=== PATIENT | male | born 1975 | race Caucasian/White ===

== ENCOUNTER 2017-11-10 08:49 | Observation (INO) ==
[2017-11-10] MEDS ORDERED: Heparin 10,000 UNITS/10 ML Vial (for IV use) IV.PUSH STA (08:53)
[2017-11-10] MEDS ORDERED: Sod Chloride 0.9% Inj 1,000 ML IV.SIG SCH (09:00)
[2017-11-10] MEDS ORDERED: Heparin/NS PF Inj 1,000 ML ONE (09:06)
[2017-11-10] MEDS ORDERED: Heparin 10,000 UNITS/10 ML Vial (for IV use) ONE (09:07)
[2017-11-10] MEDS ORDERED: Lidocaine PF 1% Inj 30 ML Vial ONE (09:11)
[2017-11-10] MEDS ORDERED: fentaNYL Citrate Inj 100 MCG/2 ML Ampul ONE (09:16)
--- NOTE | 2017-11-10 09:17 | XR ---
EXAM DATE: 11/10/2017 9:11 AM EDT AGE/SEX: 42 years / Male INDICATIONS: STEMI alert, chest pain this morning CLINICAL DATA: This is the patient's initial encounter. Patient reports that signs and symptoms have been present for 1 day and indicates a pain score of 8/10. MEDICAL/SURGICAL HISTORY: Emphysema. . COMPARISON: [facility], CHEST SINGLE AP, 03/07/2016. . FINDINGS: A single AP view of the chest demonstrates the lungs to be symmetrically aerated without evidence of mass, infiltrate or effusion. The cardiomediastinal contours are unremarkable. Osseous structures a re intact. CONCLUSION: Negative examination. Electronically signed by: Viktor Rdz MD 11/10/2017 9:15 AM EDT
[2017-11-10 09:20] LABS: Activated Partial Thrombo Time 26.2 sec (24.3-30.1); Prothrombin Time 9.9 sec (9.8-11.6)
--- NOTE | 2017-11-10 09:23 | ED ---
HPI General Chief Complaint: STEMI Alert Stated Complaint: Stemi Alert Time Seen by Provider: 11/10/17 08:53 Source: patient Mode of arrival: EMS Limitations: no limitations History of Present Illness HPI narrative: 42-year-old male with a history of tobacco use, presents today after being called a STEMI alert. The patient was outside smoking a cigarette when he started experience in tightness in his left chest with radiation to his left jaw. The patient denies any history of cardiac problems. He does have family history with his father having cardiac issues. Besides smoking cigarettes, the patient has no history of hypertension diabetes or known cholesterol issues. MD complaint: chest pain Complete Quality Measures for STEMI Alert Patients STEMI Alert: Yes Onset (ago): minute(s) Time: 08:20 Duration: improved Onset: during rest Pain location: left chest and other (Left jaw) Severity: moderate Severity scale (1-10): 5 Quality: tightness and heaviness Pain radiation: jaw/teeth Relieving factors: nitroglycerin Exacerbating factors: nothing Context: other Associated symptoms: nausea Treatments prior to arrival chest pain: aspirin and nitroglycerin Related Data Allergies Allergy/AdvReac Type Severity Reaction Status Date / Time No Known Allergies Allergy Unverified 11/10/17 08:51 Review of Systems Except as stated in HPI: all other systems reviewed are negative Constitutional Denies chills and Denies headache(s) Eyes Reports system reviewed and no additional complaints, except as [facility] Denies headache(s) and Reports other (Left jaw discomfort) Cardiovascular Reports chest pain, Reports chest pain at rest and Denies palpitations Respiratory Denies chest congestion and Denies cough Gastrointestinal Reports system reviewed and no additional complaints, except as [facility] Genitourinary Reports system reviewed and no additional complaints, except as [facility] Musculoskeletal Reports system reviewed and no additional complaints, except as [facility] Neurologic Reports system reviewed and no additional complaints, except as [facility] PMFSH Social History Social History Substance History: No History of Abuse Smoking Status: Current every day smoker Tobacco Type: Cigarettes How Often Do You Have a Drink Containing Alcohol: Monthly or less Recent Travel in [facility] within the Last 8 Weeks: No Recent Out of Country Travel within the Last 8 Weeks: No Immunization History Tetanus Immunization: Unsure Hx Influenza Vaccine This Season: No Exam Narrative Exam Narrative: GENERAL: Well developed well-nourished male in no acute respiratory distress. SKIN: Focused skin assessment warm/dry. HEAD: Atraumatic. Normocephalic. EYES: Pupils equal and round. No scleral icterus. No injection or drainage. ENT: No nasal bleeding or discharge. Mucous membranes pink and moist. NECK: Trachea midline. Supple. CARDIOVASCULAR: Regular rate and rhythm. No murmur appreciated. RESPIRATORY: No accessory muscle use. Clear to auscultation. Breath sounds equal bilaterally. GASTROINTESTINAL: Abdomen soft, non-tender, nondistended. Hepatic and splenic margins not palpable. MUSCULOSKELETAL: No obvious deformities. No clubbing. No cyanosis. No edema. NEUROLOGICAL: Awake and alert. No obvious cranial nerve deficits. Motor grossly within normal limits. Normal speech. PSYCHIATRIC: Appropriate mood and affect; insight and judgment normal. Course Initial Documented Vital Signs Temperature 98.0 F 11/10/17 08:51 Pulse Rate 75 11/10/17 08:51 Respiratory Rate 18 11/10/17 08:51 Blood Pressure 124/82 11/10/17 08:51 Pulse Oximetry 97 11/10/17 08:51 Last Documented Vital Signs Temperature 98.0 F 11/10/17 08:51 Pulse Rate 83 11/10/17 08:57 Respiratory Rate 18 11/10/17 08:51 Blood Pressure 124/82 11/10/17 08:57 Pulse Oximetry 99 11/10/17 09:08 Medical Decision Making MDM Narrative Medical decision making narrative: 42-year-old male presents as a STEMI alert. Patient has anterior septal ST elevation with reciprocal depression on 12-lead from the MS. Patient's repeat 12-lead here showed normalization. Patient was taken emergently to the [facility]. Case was discussed with Dr. Abdirashid Siegel , on-call exchange engineer. He had been given aspirin in the field. He also been given 3 sublingual nitro which brought his pain nearly 2 is 0. He was loaded with 4500 mg of heparin. Differential Diagnosis Differential Diagnosis: ACS versus musculoskeletal versus metabolic derangement. Discharge Plan Discharge Disposition Patient Disposition: 30 Still Patient Discharge Details Diagnosis: ST elevation myocardial infarction (STEMI), Tobacco use Physicians Team ED Provider: Donato Giraldo Primary Care Provider: Primary Care Physici,No Discharge Interventions Interventions: ED Discharge Assessment Last Done: 11/10/17 09:17 Vital Signs Last Done: 11/10/17 09:04 Status ED Status: With Doctor
[2017-11-10 09:31] LABS: Magnesium 2.1 mg/dL (1.5-2.5)
[2017-11-10 09:33] LABS: Troponin I 0.02 ng/mL (0.02-0.05)
[2017-11-10] MEDS ORDERED: Iohexol 350 MG/ML 100 ML Vial (for Cath Lab) IVCONTRAST ONE (10:04)
--- NOTE | 2017-11-10 10:07 | CATHPROC ---
[facility] HIS Report Study Information Study Number Admission Scheduled Start Study Start [id number] Nov 10 2017 8:49AM 11/10/2017 Nov 10 2017 9:10AM [facility] Service Cardiac Pacer/ICD Admit Source Facility Department Emergency department [facility] - Department Administrator Physician and Clinical Staff Initial Abdirashid Casas Shoemaker Custom Ervin Cary,KENNETH Shoemaker Custom Drew Nuñez RN Other Hosterman, Neil,RT(R) Recorder Cindy Cook,OPERATIONAL INTELLIGENCE OFFICER TECH2 Scrub Lori Boyd,TONY TECH2 Procedures Performed Procedure Location (Site) Vessel Name Coronary Angiograms LCA Left Coronary Coronary Angiograms RCA Right Coronary L Heart Cath Equipment Time Hospital Medicine Director Description Size Mfg Part Number Used/Scraped TRANSDUCER, TRUWAVE [id number] 09:11 RODRIGUEZ MOHAMUD * Used W/STOCKCOCK *[id number] *[id number] *[id number] 09:11 [employer] BLANKET,WARM AIR CCL * Used *[id number] 09:11 [employer] PACK, CCL CUSTOM * Used *[id number] 09:11 [employer] SUPPORT, ARTERIAL ADULT [id number] *[id number] Used BAND, RADIAL COMPRESSION TR [id number] 09:47 [employer] 24CM Used SHORT 24 *[id number] 09:11 [employer] WIRE, EXCHANGE 260CM 3MMJ 260CM Used *[id number] 09:11 [employer], 4 PORT * Used *[id number] 09:11 [employer] OMNIPAQUE, 350 MG, 150ML 150ML [id number] Used SHEATH, FR6 TRANSRADIAL RM*[id number] 09:11 [employer] MEDICAL FR 6 Used SLENDER 10CM *[id number] History: Allergies Allergy Reaction No Known Allergies History: Risk Factors Family History of Hypertension Dyslipidemia Previous OH Previous Heart Failure Premature CAD No No Yes No No Prior Valve Prior PCI Prior CABG Surgery No No No Cerebrovascular Peripheral Artery Chronic Lung On Dialysis Diabetes Disease Disease Disease No No No No No History: Symptoms/Diagnosis Selection Items Chest pain History: Stress Tests Stress or Imaging Studies Performed No History: Other Current Smoker Method Packs a Day Years Used Pack Years Yes Cigarettes 1 27 27 Labs Hgb (g/dl) Hct (%) 11.60-17.00 35.00-51.00 16.0 47 Glucose (mg/dl) BUN (mg/dl) Creatinine (mg/dl) BUN:Creatinine (1:x) 74.00-106.00 7.00-18.00 0.50-1.30 10.00-20.00 103 15 0.9 16.7 Na (meq/l) K (meq/l) Cl (meq/l) Ca (mg/dl) 136.00-145.00 3.50-5.10 98.00-107.00 8.50-10.10 142 3.7 103 9 PT (sec) PTT (sec) INR (PTT:PT) 9.80-11.60 24.30-30.10 0.90-1.10 9.9 26.2 1 Troponin I (ng/ml) CPK (u/l) CPK-MB (ng/ML) 0.02-0.05 26.00-308.00 0.50-3.60 0.02 51 Not Drawn Medication Medication Total Dose (Bolus/Oral) Medication Total Dosage/Unit 1% XYLOCAINE 5 mL FENTANYL 25 mcg RADIAL COCKTAIL 5 mL (Bolus) VERSED 0.5 mg Medications (Bolus/Oral) Medication Time Given Dosage/Unit Administered By Reason VERSED 11/10/2017 9:29:52 AM 0.5 mg Luis Daniel Ervin 0.5 mg VERSED given in lab by Ervin Cary RN in Right Antecubital via Peripheral IV. Ordered by Abdirashid Guerrero FENTANYL 11/10/2017 9:30:09 AM 25 mcg Luis Daniel, Ervin 25 mcg FENTANYL given in lab by Ervin Cary RN in Right Antecubital via Peripheral IV. Ordered by Abdirashid San 1% XYLOCAINE 11/10/2017 9:30:32 AM 5 mL Abdirashid Siegel 5 mL 1% XYLOCAINE given in lab by Abdirashid Siegel in Right Radial via Subcutaneous. Ordered by Abdirashid Armando Ntg 200mcg Verapamil 2.5mg Heparin RADIAL COCKTAIL 11/10/2017 9:32:09 AM 5 mL (Bolus) Abdirashid Siegel 3000U 5 mL (Bolus) RADIAL COCKTAIL given in lab by Abdirashid Siegel in Right Radial via Radial. Using [S olution Name]. Ordered by Abdirashid Siegel Reason: Ntg 200mcg Verapamil 2.5mg Heparin 3000U. Medication (Drip) Medication Time Given Dosage/Unit Concentration/Unit Diluent (ml) Solution IV Solutions 11/10/2017 9:14:46 AM 0 mL (IV) 1000 NaCl .9 Patient arrived on IV Solutions in Left Antecubital via Peripheral IV. Pump/Drip Flow = 20 ml/hr usin g NaCl .9. Initial Case Assessment Cardiovascular HR Rhythm NIBP Chest Pain 74 sr 124/94 0 Circulatory - Right Pulses Dorsalis Pedis Femoral Radial 3 3 2 Scale (0,1,2,3,4,d) Circulatory - Left Pulses Dorsalis Pedis Femoral Radial 3 3 Scale (0,1,2,3,4,d) Neurological State Oriented to time-place- Alert Moves all extremities person Respiration - General Respiration Rate SpO2 (%) (B/min) 16 100 Final Case Assessment Cardiovascular HR Rhythm NIBP Chest Pain 64 sr 122/66 0 Circulatory - Right Pulses Dorsalis Pedis Femoral Radial 3 3 2 Scale (0,1,2,3,4,d) Circulatory - Left Pulses Dorsalis Pedis Femoral Radial 3 3 Scale (0,1,2,3,4,d) Neurological State Oriented to time-place- Alert Moves all extremities person Respiration - General Respiration Rate SpO2 (%) (B/min) 17 98 Chronological Log Time Study Chronological Log 9:07:13 Patient Name, D.O.B, / Armband Verified By R.N. 9:07:30 Patient arrived directly from ER. 9:11:19 Pre-op and post- op instructions given; patient acknowledges understanding of instructions. 9:11:20 Verbal Stimulation=2 Physical Stimulation=2 Airway=2 Respiration=2 TOTAL=8. (0=absent, 1=martinez ited, 2=present) 9:11:54 Presedation assessment performed by Department Administrator RN. Vitals capture started with the following parameters, Patient=Adult, Interval=5 min, Initial Pre vkbwu=720 mmHg, 9:13:43 Deflation Rate=5 mmHg, Cuff placed on Left Arm 9:14:12 Positive Allens test performed on the right radial and ulnar artery. 9:14:19 HR=83 bpm, QAHI=855/94 mmhg, SpO2=98.0 %, Resp=15 B/min 9:14:23 Patient has been NPO for More than 6Hrs. 9:14:25 Skin Breakdown-none 9:14:31 Disposable Defibrillator Pads Placed On Patient. 9:14:43 Carmella Prominences Protected 9:14:45 A # 18 IV was noted in the Antecubital (left). Grade = 0 9:14:46 Patient arrived on IV Solutions in Left Antecubital via Peripheral IV. Pump/Drip Flow = 20 m l/hr using NaCl .9. 9:14:47 History and physical on the chart or being dictated. Assessment: Initial Case, HR=74 BPM, Rhythm=sr, VBAB=220/94 mmhg, Chest Pain=0 Right Pulses: Frank Ped=3, Femoral=3, Radial=2 9:14:48 Left Pulses: Frank Ped=3, Femoral=3 Neurological: State=Alert, Ox3, MURRIETA Respiration: Resp=16 B/min, PoR8=711 % 9:15:16 MD arrived. 9:15:23 Right radial and Bilateral groins prepped with 2% chlorhexidine, and draped after a 3 minute waiting time. 9:16:10 A # 20 IV was noted in the Antecubital (right). Grade = 0 9:16:51 HR=80 bpm, IUJR=837/88 mmhg, SpO2=98.0 %, Resp=16 B/min 9:17:36 Reference ECG taken 9:18:17 HR=82 bpm, WVTG=476/97 mmhg, SpO2=98.0 %, Resp=19 B/min 9:20:18 HR=64 bpm, XDFC=608/86 mmhg, SpO2=98.0 %, Resp=17 B/min 9:22:50 Pressure channel 1 zeroed. 9:22:57 HR=64 bpm, HHIM=108/84 mmhg, SpO2=98.0 %, Resp=17 B/min 9:24:21 HR=64 bpm, ZUAD=418/80 mmhg, SpO2=98.0 % 9:26:16 HR=64 bpm, LLLV=777/78 mmhg, SpO2=99.0 % 9:28:19 HR=57 bpm, SIFZ=853/77 mmhg, SpO2=99.0 % Time Out. Correct patient, correct procedure, correct physician, labs, allergies, and equipment verified with metallurgical lab technician 9:29:12 team present. Fire risk assesment completed (see hard stop sheet for coding). Time Out Concu rred by MD and individual staff in procedure. 9:29:52 0.5 mg VERSED given in lab by Ervin Cary RN in Right Antecubital via Peripheral IV. Order ed by Abdirashid Siegel. 25 mcg FENTANYL given in lab by Ervin Cary RN in Right Antecubital via Peripheral IV. Ordered by Abdirashid Siegel 9:30:09 G. 9:30:20 HR=77 bpm, CMWF=810/83 mmhg, SpO2=98.0 %, Resp=19 B/min 9:30:27 Case Start 5 mL 1% XYLOCAINE given in lab by Abdirashid Siegel in Right Radial via Subcutaneous. Ordered by Robbin 9:30:32 Abdirashid Nieves 9:30:57 Access site was Radial Artery. Right A SHEATH, FR6 TRANSRADIAL SLENDER 10CM FR 6 was advanced into the Radial (right) using the Perc utaneous 9:31:12 technique. 5 mL (Bolus) RADIAL COCKTAIL given in lab by Abdirashid Siegel in Right Radial via Radial. Us ing [Solution Name]. 9:32:09 Ordered by Abdirashid Siegel. Reason: Ntg 200mcg Verapamil 2.5mg Heparin 3000U. 9:32:17 HR=76 bpm, WRSW=883/90 mmhg, SpO2=98 %, Resp=12 B/min A JR 4.0 INFINITI CATHETER FR 5 was advanced over a wire. OMNIPAQUE, 350 MG, 150ML 150ML was us ed for 9:32:41 injections. 9:34:24 HR=63 bpm, BXQM=359/65 mmhg, SpO2=98.0 %, Resp=10 B/min Recorded Pressure: LV, HR=64, Condition=Condition 1 9:34:51 (Left Ventricle) LV 118/0/11 Recorded Pressure: LV, Ao, HR=72, Condition=Condition 1 9:35:33 (Left Ventricle) LV 114/5/7, (Aorta) Ao 110/74/91 9:36:11 The RCA was injected and visualized at various angles. OMNIPAQUE, 350 MG, 150ML 150ML used. 9:36:22 HR=62 bpm, MSQN=678/62 mmhg, SpO2=94.0 %, Resp=13 B/min After removing the current catheter a JL 3.5 INFINITI CATHETER FR 5 was advanced over a WIRE, E XCHANGE 260CM 9:37:50 3MMJ 260CM. 9:38:19 HR=74 bpm, ZXUH=510/71 mmhg, SpO2=94.0 %, Resp=13 B/min 9:40:22 HR=64 bpm, XNVG=984/65 mmhg, SpO2=94.0 %, Resp=12 B/min 9:41:12 The LCA was injected and visualized at various angles. OMNIPAQUE, 350 MG, 150ML 150ML used. 9:43:02 HR=62 bpm, XTHA=637/69 mmhg, SpO2=97.0 % 9:45:48 HR=71 bpm, UPST=715/91 mmhg, SpO2=96.0 %, Resp=14 B/min 9:46:29 Catheter was removed 9:47:44 HR=65 bpm, EWQS=517/73 mmhg, SpO2=97.0 %, Resp=10 B/min 9:48:46 HR=63 bpm, HLGG=535/75 mmhg, SpO2=97.0 %, Resp=12 B/min 9:49:11 Case End (Physician broke scrub) Radial Compression Device Used. 13 mLs of air placed in BAND, RADIAL COMPRESSION TR SHORT 24 24 CM. Affected 9:50:08 hand 97 % O2 saturation. 9:50:24 HR=64 bpm, BBWK=339/66 mmhg, SpO2=98.0 %, Resp=17 B/min 9:52:45 Vitals capture stopped. Assessment: Final Case, HR=64 BPM, Rhythm=sr, WOEC=974/66 mmhg, Chest Pain=0 Right Pulses: Frank Ped=3, Femoral=3, Radial=2 9:55:41 Left Pulses: Frank Ped=3, Femoral=3 Neurological: State=Alert, Ox3, MURRIETA Respiration: Resp=17 B/min, SpO2=98 % 9:56:48 No case complications noted. 9:56:50 Cine recording checked. 9:56:51 Bedside Report will be given. 9:56:58 A Left Heart Cath was performed. 10:03:59 [facility] moved to bed [facility] End Study - Contrast Media Used In Study Contrast Total Opened (mL) Total Used (mL) Total Wasted (mL) Omnipaque 60 60 0 End Study - Maximum Contrast Load Max Contrast Load (mL) 415.7 End Study - Radiation Exposure Fluoro Time Fluoro Dose (mGy) Cine Dose (uGym2) (minutes) 2.0 545 2888 End Study - Sheaths Sheaths Pulled By Sheath Hold Time (min) Lori Boyd End Study - Patient Disposition Complications Transferred To Interventional Outcome No Critical Care Bed No attempt made
--- NOTE | 2017-11-10 22:19 | MB ---
cc: Abdirashid Siegel DO DATE: 11/10/2017 CHIEF COMPLAINT: Chest pain. HISTORY OF PRESENT ILLNESS: Gonzalez Kaur is a pleasant 42-year-old male who presented to [facility] due to chest pain. He states that he started getting tightness in his left upper chest and has had this on and off for a number of years. He noticed it a little more significantly over the past month. He felt like he needed to have this checked out further and so he called the ambulance. EKG by EMS showed possible ST elevation in the anterior and high lateral leads with reciprocal changes. He was called as a STEMI-alert at that time. Upon arrival, EKG was repeated and showed normal sinus rhythm, with no acute ST-T wave changes. I was asked to evaluate him due to the EKG changes noted on EMS' EKG. By the time I saw him, his chest pain had mostly gone away and he felt relatively better. PAST MEDICAL HISTORY: 1. Necrotizing pneumonia with cavitation (02/2016). 2. Tobacco abuse. 3. Anxiety/depression. 4. Chronic pain. PAST SURGICAL HISTORY: Bronchoscopy (10/28/2015). ALLERGIES: NO KNOWN DRUG ALLERGIES. MEDICATIONS: Denies. FAMILY HISTORY: Father had a myocardial infarction in his 40s. He also had bypass valve replacement and a brain tumor. Mother had ovarian cancer and has . SOCIAL HISTORY: He smokes about a pack of cigarettes a day. Denies alcohol or IV drug abuse. He does take painkillers occasionally and has attempted to wean himself off. He states that he takes 1 every 4-8 weeks as needed. REVIEW OF SYSTEMS: Fourteen systems were reviewed including osteopathic. Pertinent positives and negatives above, otherwise negative. PHYSICAL EXAMINATION: VITAL SIGNS: Temperature 98.0, heart rate 75, blood pressure 124/82, respirations 18, pulse oximetry 97% on 2 liters. GENERAL: The patient appears well, in no acute distress, alert, awake and oriented x 3. HEENT: Extraocular muscles intact. Mucous membranes moist. NECK: Supple. No JVD at 45 degrees. No carotid bruits heard bilaterally. Carotid upstroke is brisk in nature. HEART: Regular rate and rhythm. Positive first and second heart sounds, with no noted murmurs, gallops or rubs. LUNGS: Clear to auscultation bilaterally. No wheezes, rales or rhonchi. ABDOMEN: Soft, nontender, nondistended. No organomegaly noted. EXTREMITIES: Show no clubbing, cyanosis or edema. Femoral and distal pulses are intact bilaterally. NEUROLOGIC: No focal deficits. OSTEOPATHIC: No kyphoscoliosis, lordosis. LABORATORY DATA: Hemoglobin 16.0, hematocrit 47.0. Potassium 3.7, BUN 15, creatinine 0.9. Troponin 0.02. Electrocardiogram (11/10/2017 at 0853), sinus rhythm, occasional PVC. IMPRESSION: 1. Abnormal echocardiogram on arrival of emergency medical services. 2. Chest pain concerning for coronary insufficiency. 3. Chronic pain. 4. Tobacco abuse. 5. History of premature coronary artery disease with his father having a myocardial infarction in his 40s. RECOMMENDATIONS: 1. Mr. Kaur presented with chest pain, which has some components of typical and atypical angina. Overall, there is concern that his EKG in the ambulance did show some ST elevations, although ours reverted back to normal. 2. To rule out significant disease, whether that would be a recannulated coronary artery or an occluded artery with collaterals, cardiac catheterization should be done to define his coronary anatomy. 3. Risks, benefits and alternatives have been explained to him and he consents to such. 4. I do not believe that this is a true STEMI, but still an urgent case, as he did have significant EKG changes. 5. We will check a 2D echo to look at his overall left ventricular function, cardiac structure and possible valvulopathies. 6. I spoke to him for greater than 3 minutes about tobacco cessation. 7. Further recommendations will be made based on hospital course. Thank you for allowing me to see Gonzalez Kaur. If there are any questions, please do not hesitate to call. DO TYRA Sampson/JUAN , 08:06 PM , 10:18 PM
--- NOTE | 2017-11-10 22:35 | MA ---
cc: Abdirashid Siegel DO DATE: 11/10/2017 DATE OF PROCEDURE: 11/10/2017. PROCEDURE: Left heart catheterization, coronary angiogram, moderate sedation, 20 minutes. PREPROCEDURE DIAGNOSIS: Chest pain, ST elevation myocardial infarction alert for abnormal electrocardiogram while on emergency medical services. POSTPROCEDURE DIAGNOSES: 1. Atypical chest pain. 2. Mild coronary artery disease. MEDICATIONS: 1. Versed 0.5 mg. 2. Fentanyl 25 mcg. 3. Nitro 200 mcg. 4. Verapamil 2.5 mg 5. Heparin 3000 units. CONTRAST USED: 60 mL FLUOROSCOPY: 2.0 minutes. MODERATE SEDATION: 20 minutes. FRAILTY SCORE: 2. ESTIMATED BLOOD LOSS: 10 mL PROCEDURAL SUMMARY: Gonzalez Kaur is a pleasant 42-year-old male who presented to [facility] due to chest pain. While in the ambulance, he had an EKG done, which showed possible ST elevations anterior and in the high lateral. On arrival here, his EKG had reverted back to normal. Due to this abnormal EKG as well as his chest pain, I thought it reasonable to take him to the [facility] urgently to define his coronary anatomy. Risks, benefits and alternatives were explained to him and he consented to such. He was brought to the lab and prepped in the usual sterile fashion. The right radial artery was accessed using a modified Seldinger technique and placement of a 5/6 Setswana slender sheath. This is easily aspirated and flushed. A JR4 was advanced over a J-wire to the ascending aorta and across the aortic valve for measurement of left ventricular pressure. This was pulled back across the aortic valve showing no significant gradient of aortic stenosis. JR4 was used for selective angiography of the right coronary artery system. This was exchanged out for a JL3.5, which was used for selective angiography of the left coronary artery system. JL3.5 was removed over a J wire. A radial band was placed over the arteriotomy site for hemostasis. The patient left the [facility] cardiovascularly stable. FINDINGS: LEFT MAIN: Normal-sized vessel with adequate reflux and no significant disease. It bifurcates into an LAD and circumflex. LAD: Normal-sized vessel with 20-30% disease proximally. Distal to this, the vessel tapers down distally and has a long area of diffuse 40% disease. It supplies 2 major diagonals with the second diagonal having multiple distal branches. LEFT CIRCUMFLEX: Moderate-sized vessel, which supplies 2 major obtuse marginals with the first one being somewhat small and the second one being larger. Overall, the obtuse marginals are mildly tortuous with no significant disease. RCA: Normal-sized vessel with mild luminal irregularities. It supplies a major PDA with no significant disease. LVEDP is 7. IMPRESSIONS: Mr. Kaur presented with chest pain and was felt to be a ST elevation myocardial infarction alert. Overall, I do not feel that this correlates as a ST elevation myocardial infarction as his electrocardiogram should not have reverted back to normal right away. I do believe that it is an urgent case that this might be dynamic electrocardiogram changes and so I have recommended cardiac catheterization. 1. Atypical chest pain. 2. Abnormal electrocardiogram concerning for acute ST elevation myocardial infarction. 3. Coronary artery disease. 4. Tobacco abuse. RECOMMENDATIONS: 1. Mr. Kaur underwent cardiac catheterization and was found to have no significant disease. 2. I spoke to him for greater than 3 minutes about tobacco cessation. 3. Overall, I would keep him on aspirin as he does have mild coronary artery disease. 4. We will check a 2-D echo to look at his overall left ventricular function, cardiac structure and possible valvopathies. 5. Further recommendations will be made based on the hospital course. Thank you for allowing me to see Gonzalez Kaur. If there are any questions, please do not hesitate to call. DO TYRA Sampson/JUAN , 08:12 PM , 10:33 PM
--- NOTE | 2017-11-10 23:36 | ECG ---
Date Performed: 11/10/2017 Time Performed: 08:53:29 PTAGE: 42 years EKG: Sinus rhythm WITH OCCASIONAL VENTRICULAR PREMATURE COMPLEXES BORDERLINE ECG NO PREVIOUS TRACING Since the previous tracing, no significant change noted DOCTOR: Abdirashid Siegel Interpretating Date/Time 11/10/2017 23:34:46
[2017-11-11 04:08] LABS: Baso # (Auto) 0.1 th/mm3 (0.0-0.2); Baso % (Auto) 0.9 % (0.0-2.0); Eos # (Auto) 0.2 th/mm3 (0.0-0.4); Hemoglobin 16.6 gm/dL (13.0-17.0); Lymph # (Auto) 2.9 th/mm3 (1.0-4.8); Lymph % (Auto) 26.2 % (9.0-44.0); Mean Corpuscular HGB Conc 33.9 % (32.0-36.0); Mean Corpuscular Hemoglobin 30.1 pg (27.0-34.0); Mean Corpuscular Volume 88.6 fL (80.0-100.0); Mean Platelet Volume 8.2 fL (7.0-11.0); Mono # (Auto) 0.9 th/mm3 (0.0-0.9); Mono % (Auto) 8.4 % (0.0-8.0); Neut # (Auto) 6.8 th/mm3 (1.8-7.7); Neut % (Auto) 62.5 % (16.0-70.0); Platelet Count 312 th/mm3 (150-450); Red Blood Count 5.53 mil/mm3 (4.50-5.90); Red Cell Distribution Width 13.6 % (11.6-17.2); White Blood Count 10.9 th/mm3 (4.0-11.0)
[2017-11-11 04:26] LABS: Anion Gap 6 meq/L (5-15); Blood Urea Nitrogen 11 mg/dL (7-18); Calcium 9.1 mg/dL (8.5-10.1); Carbon Dioxide 25.6 meq/L (21.0-32.0); Chloride 109 meq/L (98-107); Glomerular Filtration Rate Greater Than 89 mL/min (>89); Glucose,Random 80 mg/dL (74-106); Potassium 3.9 meq/L (3.5-5.1); Sodium 141 meq/L (136-145)
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
--- NOTE | 2017-11-11 13:57 | P.PNCA ---
Subjective Interval history: No events overnight Feels well, no chest pain Physical Exam Vital signs: Vital Signs 11/10/17 14:19 11/10/17 15:19 11/10/17 16:19 Temperature Pulse Rate Respiratory Rate Blood Pressure 126/83 122/74 126/79 Pulse Oximetry 11/10/17 17:19 11/10/17 18:19 11/10/17 19:00 Temperature Pulse Rate 67 Respiratory Rate Blood Pressure 126/83 117/77 Pulse Oximetry 11/10/17 20:00 11/10/17 21:00 11/10/17 22:00 Temperature Pulse Rate 70 60 50 L Respiratory Rate Blood Pressure Pulse Oximetry 11/10/17 23:00 11/11/17 00:00 11/11/17 01:00 Temperature Pulse Rate 67 54 L 51 L Respiratory Rate Blood Pressure Pulse Oximetry 11/11/17 02:00 11/11/17 03:00 11/11/17 04:00 Temperature Pulse Rate 54 L 67 60 Respiratory Rate Blood Pressure Pulse Oximetry 11/11/17 05:00 11/11/17 06:00 11/11/17 07:00 Temperature Pulse Rate 63 50 L 64 Respiratory Rate Blood Pressure Pulse Oximetry 11/11/17 08:00 11/11/17 09:00 11/11/17 10:00 Temperature Pulse Rate 66 76 68 Respiratory Rate Blood Pressure Pulse Oximetry 99 11/11/17 11:00 11/11/17 12:00 11/11/17 13:00 Temperature 97.5 F L Pulse Rate 68 68 68 Respiratory Rate 18 Blood Pressure 138/77 Pulse Oximetry Intake & Output 11/10/17 11/11/17 11/11/17 18:59 06:59 18:59 Intake Total 750 / 750 480 / 480 Output Total 600 / 600 Balance 150 / 150 480 / 480 Weight 74.843 kg 75 kg Intake: IV 30 / 30 NS Inj 1,000 ML @ 30 mls/hr IV. 30 / 30 SIG .Q24H [facility] Rx#:[id number] Oral 720 / 720 480 / 480 Output: Urine 600 / 600 Other: # Voids 2 2 Date of Last Bowel Movement 11/08/17 11/08/17 11/10/17 Narrative: GENERAL: NAD, AAOx3 SKIN: Warm and dry. HEAD: Atraumatic. Normocephalic. EYES: Pupils equal and round. No scleral icterus. No injection or drainage. ENT: No nasal bleeding or discharge. Mucous membranes pink and moist. NECK: Trachea midline. No JVD. CARDIOVASCULAR: Regular rate and rhythm. RESPIRATORY: No accessory muscle use. Clear to auscultation. Breath sounds equal bilaterally. GASTROINTESTINAL: Abdomen soft, non-tender, nondistended. Hepatic and splenic margins not palpable. MUSCULOSKELETAL: Extremities without clubbing, cyanosis, or edema. No obvious deformities. NEUROLOGICAL: Awake and alert. No obvious cranial nerve deficits. Motor grossly within normal limits. Five out of 5 muscle strength in the arms and legs. Normal speech. PSYCHIATRIC: Appropriate mood and affect; insight and judgment normal. Assessment and Plan - Assessment (1) CAD (coronary artery disease) Code(s): I25.10 - Atherosclerotic heart disease of [place] coronary artery without angina pectoris Status: Acute (2) Chest pain Code(s): R07.9 - Chest pain, unspecified Status: Acute (3) Tobacco use Code(s): Z72.0 - Tobacco use Status: Acute - Plan 1) Atypical chest pain 2) Mild CAD 3) 2D echo pending 4) Con't ASA 5) Tobacco cessation 6) Cardiovascularly stable for discharge if no problems on echo
--- NOTE | 2017-11-11 19:54 | ECHRPT ---
Indication: CROAR CONCLUSIONS Mildly dilated left ventricle. The left ventricular systolic function is moderately reduced with an estimated ejection fraction in the range of 40-45%. There is global left ventricular dysfunction. Trace mitral valve regurgitation. There is trace tricuspid valve regurgitation. BP: / HR: Rhythm: Technical Quality: FINDINGS LEFT VENTRICLE Mildly dilated left ventricle. Wall thickness is normal. The left ventricular systolic function is moderately reduced with an estimated ejection fraction in the range of 40-45%. There is global left ventricular dysfunction. RIGHT VENTRICLE Normal right ventricular size and systolic function. LEFT ATRIUM The left atrial size is normal. RIGHT ATRIUM The right atrial size is normal. ATRIAL SEPTUM Normal atrial septal thickness. AORTA The aortic root and proximal ascending aorta are normal in size on limited imaging. MITRAL VALVE Mild mitral annular calcification. Trace mitral valve regurgitation. No mitral valve stenosis. AORTIC VALVE Grossly normal aortic valve. No aortic valve stenosis or regurgitation. TRICUSPID VALVE Grossly normal tricuspid valve. There is trace tricuspid valve regurgitation. No tricuspid valve stenosis. PULMONARY VALVE The pulmonary valve is not well visualized. VESSELS The inferior vena cava is normal in size. PERICARDIUM No pericardial effusion. Abdirashid Siegel DO (Electronically Signed) Final Date:11 November 2017 19:52
== END 2017-11-11 21:00 | disposition home or self-care (01) ==
LOC: NEPE 08:49 → HCPC 08:49 → NEPE 09:01 → NEDA 10:03 → INTOOBSV 10:03 → HCPC 10:20
PROVIDERS: ADMIT Hospitalist; ATTEND Hospitalist